=== PATIENT | male | born 1960 | race Caucasian/White ===

== ENCOUNTER 2019-05-26 07:48 | Day surgery (SDC) | payer BC ==
[2019-05-24 10:09] VITALS: BMI 28.7
[~2019-05-26 07:48] MED LIST: LACTATED RINGERS 1,000 ML IV SCH; LIDOCAINE 1% 20 ML VIAL (10MG/ML) FOR IV START INTRADERMA PRN
[2019-05-26 08:15] VITALS: RESP 16; TEMP 98
[2019-05-26] MEDS ORDERED: PROPOFOL 10 MG/ML 20 ML VIAL IV ONE (08:21)
--- NOTE | 2019-05-26 08:25 | P.GSHP ---
History of Present Illness H&P Date: 05/26/19 Chief Complaint: Change in bowel habits Patient today for colonoscopy. He states he is having some discomfort just prior to bowel movements. His lower abdomen. No rectal bleeding or melena. Last colonoscopy 4.5 years ago. That study was normal. Past Medical History Additional Past Medical History / Comment(s): 2 mos ago lower abd pain,HX OF KIDNEY STONES,gout History of Any Multi-Drug Resistant Organisms: None Reported Past Surgical History: Orthopedic Surgery Additional Past Surgical History / Comment(s): KNEE ARTHROSCOPY , COLONOSCOPY. Past Anesthesia/Blood Transfusion Reactions: No Reported Reaction Smoking Status: Never smoker - Past Family History Father Family Medical History: Cancer Additional Family Medical History / Comment(s): LYMPHOMA, LEUKEMIA Sister(s) Family Medical History: Cancer Additional Family Medical History / Comment(s): LEUKEMIA Medications and Allergies Home Medications Medication Instructions Recorded Confirmed Type No Known Home Medications 05/24/19 05/26/19 History Allergies Allergy/AdvReac Type Severity Reaction Status Date / Time No Known Allergies Allergy Verified 05/26/19 08:12 Surgical - Exam Vital Signs Temp Pulse Resp BP Pulse Ox 98.0 F 71 16 155/85 97 05/26/19 08:14 05/26/19 08:14 05/26/19 08:14 05/26/19 08:14 05/26/19 08:14 Physical exam: General: Well-developed, well-nourished HEENT: Normocephalic, sclerae nonicteric Abdomen: Nontender, nondistended Extremities: No edema Neuro: Alert and oriented Assessment and Plan (1) Colon cancer screening Narrative/Plan: Will proceed with colonoscopy at this time. Current Visit: Yes Status: Acute Code(s): Z12.11 - ENCOUNTER FOR SCREENING FOR MALIGNANT NEOPLASM OF COLON SNOMED Code(s): 073556860
--- NOTE | 2019-05-26 08:39 | P.PCN ---
Date of Procedure: 05/26/19 Procedure(s) Performed: PREOPERATIVE DIAGNOSIS: Change in bowel habits POSTOPERATIVE DIAGNOSIS: Mild diverticulosis PROCEDURE: Colonoscopy ANESTHESIA: MAC SURGEON: Sin Cash M.D. SPECIMENS: None ENDOSCOPIC PROCEDURE: The patient was placed on the endoscopy table in the left decubitus position. The Olympus colonoscope was inserted into the anus and passed under direct visualization to the base of the cecum. The appendiceal orifice was visualized. From that point the scope was slowly withdrawn inspecting all surfaces carefully. There were no neoplastic inflammatory or polypoid lesions throughout the cecum, ascending, transverse, descending, sigmoid and rectum. There was scattered diverticulosis noted. Digital rectal examination was normal. The patient was taken to the recovery room in stable condition per anesthesia guidelines. RECOMMENDATIONS: Increase fiber. Follow-up colonoscopy 10 years.
[2019-05-26 09:01] VITALS: BP 134/85; PULSE 65
== END 2019-05-26 09:19 | disposition home or self-care (01) ==
LOC: ORWHC2ENDO 07:48
PROVIDERS: ATTEND Surgery
DX: K57.30 Diverticulosis of large intestine without perforation or abscess without bleeding (principal); M10.9 Gout, unspecified; Z87.442 Personal history of urinary calculi; Z80.6 Family history of leukemia
CPT/HCPCS: 45378; J2704

== ENCOUNTER 2023-05-13 07:11 | Day surgery (SDC) | payer BC ==
[2023-05-08 12:20] VITALS: BMI 30.8
[~2023-05-13 07:11] MED LIST changes: +LIDOCAINE 1% (10MG/ML) FOR IV START INTRADERMA PRN; -LIDOCAINE 1% 20 ML VIAL (10MG/ML) FOR IV START INTRADERMA PRN
[2023-05-13] MEDS ORDERED: LACTATED RINGERS 1,000 ML IV ONE (07:33)
[2023-05-13 07:37] VITALS: TEMP 97.8
[2023-05-13] MEDS ORDERED: MIDAZOLAM 2 MG/2 ML VIAL ONE (08:06)
[2023-05-13] MEDS ORDERED: fentaNYL (PF) 50 MCG/ML 2 ML AMP ONE (08:06)
[2023-05-13] MEDS ORDERED: PROPOFOL 10 MG/ML 20 ML VIAL IV ONE (08:06)
--- NOTE | 2023-05-13 08:10 | P.GSHP ---
History of Present Illness H&P Date: 05/13/23 Chief Complaint: Colon cancer screening 62-year-old male here for colonoscopy. No family history of colon cancer. Previous colonoscopies negative. Patient did have some rectal bleeding a month or so ago that resolved spontaneously. No bowel complaints currently. Past Medical History Past Medical History: Pneumonia Additional Past Medical History / Comment(s): Hx of kidney stones, gout., occasional constipation, hx of blood in stool, pneumonia (2019) History of Any Multi-Drug Resistant Organisms: None Reported Past Surgical History: Orthopedic Surgery Additional Past Surgical History / Comment(s): KNEE ARTHROSCOPY , COLONOSCOPY. Past Anesthesia/Blood Transfusion Reactions: No Reported Reaction Past Psychological History: No Psychological Hx Reported Smoking Status: Never smoker Past Alcohol Use History: None Reported Past Drug Use History: None Reported - Past Family History Father Family Medical History: Cancer Additional Family Medical History / Comment(s): LYMPHOMA, LEUKEMIA Sister(s) Family Medical History: Cancer Additional Family Medical History / Comment(s): LEUKEMIA Medications and Allergies Home Medications Medication Instructions Recorded Confirmed Type Acetaminophen [Tylenol] 325 mg PO DIRECTED PRN 05/07/23 05/07/23 History Allergies Allergy/AdvReac Type Severity Reaction Status Date / Time No Known Allergies Allergy Verified 05/08/23 12:04 Surgical - Exam Vital Signs Temp Pulse Resp BP Pulse Ox 97.8 F 89 14 164/84 96 05/13/23 07:22 05/13/23 07:22 05/13/23 07:22 05/13/23 07:22 05/13/23 07:22 Physical exam: General: Well-developed, well-nourished HEENT: Normocephalic, sclerae nonicteric Abdomen: Nontender, nondistended Extremities: No edema Neuro: Alert and oriented Assessment and Plan (1) Colon cancer screening Narrative/Plan: Will proceed with colonoscopy at this time. Current Visit: No Status: Acute Code(s): Z12.11 - ENCOUNTER FOR SCREENING FOR MALIGNANT NEOPLASM OF COLON SNOMED Code(s): 173576360
--- NOTE | 2023-05-13 08:21 | P.PCN ---
Date of Procedure: 05/13/23 Procedure(s) Performed: PREOPERATIVE DIAGNOSIS: Colon cancer screening POSTOPERATIVE DIAGNOSIS: Diverticulosis PROCEDURE: Colonoscopy ANESTHESIA: MAC SURGEON: Sin Cash M.D. SPECIMENS: None ENDOSCOPIC PROCEDURE: The patient was placed on the endoscopy table in the left decubitus position. The Olympus colonoscope was inserted into the anus and passed under direct visualization to the base of the cecum. The appendiceal orifice was visualized. From that point the scope was slowly withdrawn inspe cting all surfaces carefully. There were no neoplastic inflammatory or polypoid lesions throughout the cecum, ascending, transverse, descending, sigmoid and rectum. There was mild left-sided diverticulosis noted. Digital rectal examination was normal. The patient was taken to the recovery room in stable condition per anesthesia guidelines. RECOMMENDATIONS: Resume diet. Repeat colonoscopy 10 years.
[2023-05-13 08:38] VITALS: RESP 16
[2023-05-13 08:57] VITALS: BP 147/91; PULSE 69
== END 2023-05-13 08:55 | disposition home or self-care (01) ==
LOC: ORWHC2ENDO 07:11
PROVIDERS: ATTEND Surgery
DX: Z12.11 Encounter for screening for malignant neoplasm of colon (principal); K57.30 Diverticulosis of large intestine without perforation or abscess without bleeding; J18.9 Pneumonia, unspecified organism; M10.9 Gout, unspecified; K59.00 Constipation, unspecified; K92.1 Melena; Z98.890 Other specified postprocedural states; Z84.89 Family history of other specified conditions; Z79.899 Other long term (current) drug therapy; Z87.442 Personal history of urinary calculi
CPT/HCPCS: 45378; J2250; J3010; J2704